=== PATIENT | male | born 1965 | race Hispanic/Latino ===

== ENCOUNTER 2018-02-02 11:05 | Emergency (ER) | payer MEDICARE ==
[2018-02-02] MEDS ORDERED: ACETAMINOPHEN-CODEINE 300/30MG TAB ONE (12:09)
== END 2018-02-02 12:32 | disposition home or self-care (01) ==
LOC: EDH 11:05
DX: H65.193 Other acute nonsuppurative otitis media, bilateral (principal); E11.9 Type 2 diabetes mellitus without complications; I10 Essential (primary) hypertension; E78.5 Hyperlipidemia, unspecified; Z98.890 Other specified postprocedural states

== ENCOUNTER 2025-03-02 21:50 | Emergency (ER) | payer SELFPAY ==
[~2025-03-02] VITALS: Ht 185.4 cm; Wt 91.2 kg
--- NOTE | 2025-03-02 22:04 | NUR ---
PT PLACED IN ED 13. PT CARE ASSUMED.
--- NOTE | 2025-03-02 23:35 | NUR ---
MERLY HOFFMAN REPLACED PEG TUBE AT THIS TIME. 20 FR 3-PORT TUBE.
--- NOTE | 2025-03-03 00:06 | NUR ---
ED MD AND ED RN IN ROOM FOR SWALLOW STUDY. PT DRANK WATER THROUGH A STRAW WITH NO PROBLEMS. NO CHOKING OR COUGHING.
--- NOTE | 2025-03-03 00:18 | ERN ---
General Chief Complaint: Other Problems Stated Complaint: POSSIBLE PEG TUBE INFECTION Time Seen by MD: 22:04 History of Present Illness Initial Comments Patient is a 60-year-old male who has concerned about PEG tube being infected. 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 No fevers or chills. Allergies: Coded Allergies: No Known Drug Allergies (Unverified Allergy, Unknown, 03/02/25) Past Medical History Past Medical History: Anxiety, CVA, Depression, Diabetes-Type II, High Chol esterol Medical History Other: cva with right sided deficit, peg Past Surgical History: None ROS Dictation Review of systems is negative no fevers no chills no nausea no vomiting no diarrhea no abdominal pain no chest pain no shortness of breath. Physical Exam Respiratory: (+) chest non-tender, (+) lungs clear, (+) well ventilated Heart: (+) regular Gastrointestinal: (+) soft, (+) non-tender, (+) bowel sound present Gastrointestinal Comment I removed the dressings from the PEG tube and there appeared to the some tube feeds that were caught between the fixation button and the abdominal wall. I I loosened up the button to gain access to the PEG tube cleaned up all of the tissues surrounding the PEG tube. There was no cellulitis no purulent drainage from the skin no swelling it was absolutely benign. Extremities Comment Patient's left posterior heel has dry eschar over a uninfected pressure wound. Patient's anterior right colon has two open wounds that are superficial and uninfected. MDM While I was cleaning the patient's PEG tube and reassuring the family members it the patient is fine they told me about a left posterior heel wound and an anterior right colon wound. They were also concerned because the patient had an episode of desaturation in her doctor's office to days ago where they rushed him to [facility] and nothing was done. They are also telling me that the patient can not eat or drink without choking on his food for the last two weeks. And that they informed the physicians and their primary care doctor this at [facility] and again nothing was done and .. I discussed these issues with the hospitalist and she and I both agreed that this patient still did not meet hospitalization criteria despite all their minor aches and complaints. I obtained a chest x-ray which did not show any evidence of aspiration. The patient has a normal respiratory rate his oxygen saturations were 99% on room air. The left posterior heel simply needs to have a pillow propping up the leg so that the pressure is relieved. The right anterior colon wounds are uninfected and will heal with normal conservative wound care. I would recommend a collagen dressing. I had the patient's sit up straight in bed and gave him a cup of water with a straw and he was successfully able to drink several sips of water without aspirating. I replaced the PEG tube with a new one. There were no complications. The patient can be discharged from the hospital with conservative wound care to his left heel and right anterior colon. He is safe to drink thick liquids and even regular food. As he can tolerate drinking plain water. The PEG tube is usable right now. I recommend the patient go to his primary care physician to address all of these wound issues and also possibly a another swallow eval. ED Course Orders Procedure Category Date Status Time Chest 1vw RAD 03/02/25 Taken 23:05 Vital Signs Date Time Temp Pulse Resp B/P (MAP) Pulse Ox O2 Delivery O2 Flow Rate FiO2 03/02/25 22:10 97.9 98 14 106/73 98 Room Air* 0 21 03/02/25 21:51 98.6 99 16 125/69 99 Room Air 0 DX & DISP Disposition: Discharge Departure Impression: Primary Impression: Pain around PEG tube site Condition: Stable Additional Instructions: Please place his left leg on a pillow so that his left heel is no longer in constant contact with the bed. You can treat the right anterior colon wound with a simple small amount of bacitracin twice a day. Patient can drink water and therefore can have solid food and thick liquids. I recommend that you go see your physician about getting a repeat swallow eval if you have problems. Currently there was no evidence of an aspiration on your chest x-ray. Your PEG tube is new and ready to use. Referrals: CASH ADAMS MD (PCP) VALERIE PAVON MD Mar 03, 2025 00:18
[2025-03-03 02:13] VITALS: BP 134/72; PULSE 89; RESP 16; TEMP 98; O2SAT 99
--- NOTE | 2025-03-03 02:16 | NUR ---
EMS LEFT [facility] – [place] ED. PENDING ARRIVAL TO PT'S HOME.
--- NOTE | 2025-03-03 08:37 | HMCIMG ---
Exam Type: CHEST 1VW Clinical Information: short of breath Comparison: None Findings: The lungs are clear of infiltrates. The heart is normal in size. The bony and soft tissue structures of the chest are unremarkable. Impression: Clear lungs.
== END 2025-03-03 02:18 | disposition home or self-care (01) ==
LOC: EDH 21:50
DX: T85.848A Pain due to other internal prosthetic devices, implants and grafts, initial encounter (principal); E11.9 Type 2 diabetes mellitus without complications; E78.00 Pure hypercholesterolemia, unspecified; Z86.73 Personal history of transient ischemic attack (TIA), and cerebral infarction without residual deficits; Y82.8 Other medical devices associated with adverse incidents; Y92.89 Other specified places as the place of occurrence of the external cause
CPT/HCPCS: 43762; 71045; 99285